=== PATIENT | male | born 1995 | race Caucasian/White ===

== ENCOUNTER 2017-01-21 12:44 | Emergency (ER) | payer BC, OTHER ==
[~2017-01-21] VITALS: Ht 193 cm; Wt 78.0 kg
[2017-01-21 12:50] VITALS: BP 124/71; PULSE 79; RESP 16; TEMP 98.6; O2SAT 97
[2017-01-21] MEDS ORDERED: ERYTOIN10 EACH EYE (13:18)
[2017-01-21] MEDS ORDERED: POLY10O EACH EYE (13:18)
--- NOTE | 2017-01-21 13:19 | PD ---
HPI Chief Complaint: Eye Problems/Injury Time Seen by Provider: 13:12 Travel History International Travel<30 days: No Contact w/Intl Traveler<30days: No Traveled to known affect area: No History of Present Illness HPI Patient 21-year-old male presents with bilateral redness and itching of his eyes for the past few days. Patient states that initially he thought he had touch his eyes with some shellfish which is allergic to but when he passed onto his girlfriend thought that he might asked have an infection. He also noted that he's had to pry his eyes open over the past few days in the morning as there has been some discharge. He denies any URI symptoms denies any visual problems denies any eye pain. States his symptoms are gradually worsening. PFSH Past Medical History Medical History: Denies Significant Hx Hx Anticoagulant Therapy: No Cancer: Yes (MAT GR. GRMX.) Diabetes: No Diminished Hearing: No Psychiatric: No Seizures: No Thyroid Disease: No Ulcer: No Influenza Vaccination: No Past Surgical History Other Surgery: Yes (HAD SURGERY AT 1 YEAR FOR FUSED FONTANELS) Social History Alcohol Use: No Tobacco Use: No Substance Use: No Allergies-Medications (Allergen,Severity, Reaction): Coded Allergies: Iodine (Verified Allergy, Severe, 01/21/17) SEAFOOD Uncoded Allergies: SHELLFISH (Allergy, Unknown, 08/16/04) Reported Meds & Prescriptions Reported Meds & Active Scripts Active Polytrim Opth Drops (Polymyxin/Trimethoprim Sulfate) 10,000-0.1 Unit/Ml-% Soln 1 Drop EACH EYE Q6HR 10 Days Erythromycin Opth Oint 5 Mg/Gm Oint 1 Applic EACH EYE BID 10 Days Review of Systems Except as stated in HPI: all other systems reviewed are Neg Physical Exam Narrative GENERAL: Well-nourished, well-developed patient. SKIN: Warm and dry. HEAD: Normocephalic. EYES: No scleral icterus. There is bilateral moderate injection and drainage of very thin discharge. There is no chemosis, extremity movements are intact. No periauricular lymphadenopathy. ENT: TMs clear bilaterally, PINK and moist. NECK: Supple, trachea midline. No JVD or lymphadenopathy. CARDIOVASCULAR: Regular rate and rhythm without murmurs, gallops, or rubs. RESPIRATORY: Breath sounds equal bilaterally. No accessory muscle use. GASTROINTESTINAL: Abdomen soft, non-tender, nondistended. MUSCULOSKELETAL: No cyanosis, or edema. BACK: Nontender without obvious deformity. No CVA tenderness. Data Data Last Documented VS Vital Signs Date Time Temp Pulse Resp B/P Pulse Ox O2 Delivery O2 Flow Rate FiO2 01/21/17 12:50 98.6 79 16 124/71 97 MDM Medical Decision Making Medical Screen Exam Complete: Yes Emergency Medical Condition: Yes Differential Diagnosis Viral conjunctivitis, bacterial conjunctivitis, URI Narrative Course Patient was roomed emerged permit, he appears well and in no apparent distress. He has a complicated bacterial versus viral conjunctivitis. Will cover with risk mycin ointment as well as Polytrim. Discussed smoking cessation and discussed smoking's effect on heart lungs as well as cancer development. He was referred to the [facility] hotline. Discussed follow-up with a primary care physician and return to ED criteria. Diagnosis Primary Impression: Conjunctivitis Qualified Code: H10.30 - Acute bacterial conjunctivitis, unspecified laterality Patient Instructions: Conjunctivitis (ED), General Instructions, How to Stop Smoking (DC) Departure Forms: Tests/Procedures, Work Release Enter return to work date: Jan 23, 2017 Special Instructions: Please excuse on 01/20 and 01/21/2017 Med/Other Pt SpecificInfo: Prescription(s) given Scripts Polymyxin B-Trimethoprim Opth Drops (Polytrim Opth Drops)10,000-0.1 Unit/Ml-% Soln1 Drop EACH EYE Q6HR 10 Days Ref 0 Prov:Bill Velasquez MD 01/21/17 Erythromycin Opth Oint 5 Mg/Gm Oint1 Applic EACH EYE BID 10 Days Ref 0 Prov:Bill Velasquez MD 01/21/17 Disposition: 01 DISCHARGE HOME Condition: Stable Bill Velasquez MD Jan 21, 2017 13:19
[2017-01-22] MEDS ORDERED: IBUP-232 PO (20:26)
[2017-01-22] MEDS ORDERED: DOXY100C PO (20:26)
== END 2017-01-21 13:43 | disposition home or self-care (01) ==
LOC: PHEFT 12:44
DX: H10.33 Unspecified acute conjunctivitis, bilateral (principal)
CPT/HCPCS: 99283

== ENCOUNTER 2017-01-22 17:36 | Emergency (ER) | payer SELFPAY ==
[~2017-01-22] VITALS: Ht 193 cm; Wt 80.0 kg
[~2017-01-22 17:36] MED LIST: ERYTOIN10 EACH EYE; POLY10O EACH EYE
[2017-01-22 17:38] VITALS: BP 132/72; PULSE 98; RESP 14; TEMP 97.8; O2SAT 97
--- NOTE | 2017-01-22 18:44 | PD ---
HPI Chief Complaint: Laceration/Skin Injury Time Seen by Provider: 18:43 Travel History International Travel<30 days: No Contact w/Intl Traveler<30days: No Traveled to known affect area: No History of Present Illness HPI 21-year-old male with no significant medical history presents to the emergency department for evaluation of an injury sustained to the palmar surface of his right hand. 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 Reports pain at the site, 6 out of 10. No limitations range motion alterations in sensation. Patient has no other symptoms to report. Uncertain of tetanus status. PFSH Past Medical History Hx Anticoagulant Therapy: No Cancer: Yes (MAT GR. GRMX.) Diabetes: No Diminished Hearing: No Psychiatric: No Seizures: No Thyroid Disease: No Ulcer: No Tetanus Vaccination: < 5 Years Past Surgical History Other Surgery: Yes (HAD SURGERY AT 1 YEAR FOR FUSED FONTANELS) Social History Alcohol Use: No Tobacco Use: No Substance Use: No Allergies-Medications (Allergen,Severity, Reaction): Coded Allergies: Iodine (Verified Allergy, Severe, 01/22/17) SEAFOOD Uncoded Allergies: SHELLFISH (Allergy, Unknown, 08/16/04) Reported Meds & Prescriptions Reported Meds & Active Scripts Active Ibuprofen 600 Mg Tab 600 Mg PO Q8HR PRN Doxycycline Hyclate 100 Mg Cap 100 Mg PO BID Polytrim Opth Drops (Polymyxin/Trimethoprim Sulfate) 10,000-0.1 Unit/Ml-% Soln 1 Drop EACH EYE Q6HR 10 Days Erythromycin Opth Oint 5 Mg/Gm Oint 1 Applic EACH EYE BID 10 Days Review of Systems Except as stated in HPI: all other systems reviewed are Neg Physical Exam Narrative GENERAL: Well-nourished, well-developed patient in no acute distress SKIN: Warm and dry. 1-1/2 cm laceration to the palmar surface of the right hand proximal to the base of the thumb. Bleeding is controlled. HEAD: Normocephalic. EYES: No scleral icterus. I lateral scleral injection. Patient is being treated for conjunctivitis NECK: Supple, trachea midline. No JVD or lymphadenopathy. CARDIOVASCULAR: Regular rate and rhythm without murmurs, gallops, or rubs. RESPIRATORY: Breath sounds equal bilaterally. No accessory muscle use. MUSCULOSKELETAL: No cyanosis, or edema. Patient has full flexion extension of the digits of the affected hand. Distal pulses are palpable. Cap refill is within normal limits. BACK: Nontender without obvious deformity. No CVA tenderness. Data Data Last Documented VS Vital Signs Date Time Temp Pulse Resp B/P Pulse Ox O2 Delivery O2 Flow Rate FiO2 01/22/17 17:38 97.8 98 14 132/72 97 Room Air Orders Hand, Complete ([id number]) (01/22/17 ) Tetanus/Diphtheria Tox Adult (Tetanus/Di (01/22/17 19:45) Lidocai-Epi 1%-1:100,000 Inj (Xylocaine- (01/22/17 19:45) MDM Medical Decision Making Medical Screen Exam Complete: Yes Emergency Medical Condition: Yes Medical Record Reviewed: Yes Differential Diagnosis Laceration superficial versus deep versus puncture wound versus tendon injury Narrative Course 21-year-old male presents to emergency department for evaluation a laceration to the right hand. Wound is cleansed and approximated. Patient is up-to-date on his tetanus. He is discharged home with instructions on care. He agrees to return immediately with any acute worsening symptoms. Procedures Procedure Narrative LACERATION LOCATION: Right hand LENGTH: 1.5centimeters NUMBER OF STITCHES/LAMAR: 2 sutures REPAIR: The area of the laceration was prepped with Betadine and sterilely draped. The laceration was infiltrated with 1% lidocaine with epinephrine the wound was copiously irrigated and explored without evidence of foreign body, tendon injury or neurovascular injury. The wound was closed using 4-0 Prolene suture. This was a single layer repair. A sterile dressing was applied. The patient was advised to keep the dressing clean and dry. Patient tolerated the procedure well. Diagnosis Primary Impression: Laceration of right hand Qualified Code: S61.411A - Laceration of right hand without foreign body, initial encounter Referrals: Primary Care Physician Patient Instructions: Acute Wound Care (ED), General Instructions Additional Instructions: Keep the area clean and dry Gloves when working You may shower Elevate to reduce pain and swelling Return immediately with any acute worsening of symptoms Sutures are to be removed in 7-10 days. This can be done in the emergency department or at your primary care provider's office. Med/Other Pt SpecificInfo: Prescription(s) given Scripts Ibuprofen 600 Mg [id number] Mg PO Q8HR PRN (PAIN) #30 TAB Ref 0 Prov:Adrienne Ochoa 01/22/17 Doxycycline Hyclate 100 Mg [id number] Mg PO BID #20 CAP Ref 0 Prov:Adrienne Ochoa 01/22/17 Disposition: 01 DISCHARGE HOME Condition: Stable Adrienne Ochoa Jan 22, 2017 18:43
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
[2017-01-22] MEDS ORDERED: TETANUS/DIPHTHERIA TOXOID ADULT 0.5 ML VIAL IM ONE (19:45)
[2017-01-22] MEDS ORDERED: LIDOCAINE 1%/EPINEPHrine 1:100,000 SOLN 20 ML VIAL INFIL ONE (19:45)
[2017-01-22] MEDS ORDERED: DOXY100C PO (20:26)
[2017-01-22] MEDS ORDERED: IBUP-232 PO (20:26)
== END 2017-01-22 21:04 | disposition home or self-care (01) ==
LOC: NEPB 17:36
DX: S61.411A Laceration without foreign body of right hand, initial encounter (principal); Z23 Encounter for immunization; W26.0XXA Contact with knife, initial encounter; Y93.G1 Activity, food preparation and clean up; Y99.8 Other external cause status
CPT/HCPCS: 12001; 73130; 90471; 90714